=== PATIENT | male | born 1980 | race African-American/Black ===

== ENCOUNTER 2023-11-15 16:49 | Emergency (ER) | payer OTHER ==
[~2023-11-15] VITALS: Ht 182.9 cm; Wt 106.0 kg
[2023-11-15 16:59] VITALS: O2SAT 99
[2023-11-15 17:01] VITALS: BP 128/80; PULSE 86; RESP 16; TEMP 97.8
== END 2023-11-15 22:16 | disposition left against medical advice (07) ==
LOC: ER 16:49
DX: S61.216A Laceration without foreign body of right little finger without damage to nail, initial encounter (principal); Z53.21 Procedure and treatment not carried out due to patient leaving prior to being seen by health care provider; X58.XXXA Exposure to other specified factors, initial encounter; Y93.89 Activity, other specified; Y92.89 Other specified places as the place of occurrence of the external cause; Y99.8 Other external cause status
CPT/HCPCS: 99281

== ENCOUNTER 2024-01-05 07:22 | Emergency (ER) | payer MEDICAID, OTHER ==
[~2024-01-05] VITALS: Ht 182.9 cm; Wt 106.8 kg
[2024-01-05 07:31] VITALS: BP 142/76; PULSE 70; RESP 18; TEMP 98.5; O2SAT 99
== END 2024-01-05 08:43 | disposition home or self-care (01) ==
LOC: ER 07:37
DX: M79.675 Pain in left toe(s) (principal)
CPT/HCPCS: 99281

== ENCOUNTER 2024-03-09 17:25 | Emergency (ER) | payer MEDICAID ==
[~2024-03-09] VITALS: Ht 182.9 cm; Wt 104.3 kg
[2024-03-09 17:32] VITALS: BP 128/76; PULSE 80; RESP 16; TEMP 98; O2SAT 100
[2024-03-09] MEDS ORDERED: LIDO700A15 TP (20:17)
[2024-03-09] MEDS ORDERED: NAPR-1176 MT (20:17)
[2024-03-09] MEDS: KETOROLAC 15MG/ML VIAL IM ONE (20:49)
== END 2024-03-09 20:43 | disposition home or self-care (01) ==
LOC: ER 17:25
DX: S43.401A Unspecified sprain of right shoulder joint, initial encounter (principal); W18.30XA Fall on same level, unspecified, initial encounter; Y93.89 Activity, other specified; Y92.89 Other specified places as the place of occurrence of the external cause; Y99.8 Other external cause status
CPT/HCPCS: 99283; 73030; J1885

== ENCOUNTER 2024-05-09 10:56 | Emergency (ER) | payer MEDICAID ==
[~2024-05-09] VITALS: Ht 182.9 cm; Wt 100.0 kg
[~2024-05-09 10:56] MED LIST: LIDO700A15 TP; NAPR-1176 MT
[2024-05-09 11:04] VITALS: O2SAT 98
[2024-05-09] MEDS ORDERED: CETI10CA2 MT (11:27)
[2024-05-09] MEDS ORDERED: ALBU4TAB6 MT (11:27)
[2024-05-09] MEDS ORDERED: CETI10CA11 MT (11:28)
[2024-05-09 11:30] VITALS: BP 105/66; PULSE 74; RESP 19; TEMP 36.72516; O2SAT 98
== END 2024-05-09 11:31 | disposition home or self-care (01) ==
LOC: ER 10:56
DX: J30.2 Other seasonal allergic rhinitis (principal)
CPT/HCPCS: 99283

== ENCOUNTER 2024-05-29 08:22 | Emergency (ER) | payer MEDICAID ==
[~2024-05-29] VITALS: Ht 182.9 cm; Wt 95.0 kg
[~2024-05-29 08:22] MED LIST changes: +ALBU4TAB6 MT; +CETI10CA11 MT
[2024-05-29 08:26] VITALS: O2SAT 100
[2024-05-29] MEDS: ACETAMINOPHEN 325MG TABLET PO ONE (10:49)
[2024-05-29 11:08] VITALS: BP 155/79; PULSE 62; RESP 20; TEMP 98.6
== END 2024-05-29 11:08 | disposition home or self-care (01) ==
LOC: ER 08:35
DX: M79.605 Pain in left leg (principal)
CPT/HCPCS: 73630; 99283

== ENCOUNTER 2024-06-06 01:08 | Emergency (ER) | payer MEDICAID ==
[~2024-06-06] VITALS: Ht 182.9 cm; Wt 100.0 kg
[2024-06-06 01:14] VITALS: BP 127/80; PULSE 86; RESP 16; TEMP 98.2; O2SAT 99
== END 2024-06-06 04:23 | disposition left against medical advice (07) ==
LOC: ER 01:16
DX: M79.673 Pain in unspecified foot (principal); Z53.21 Procedure and treatment not carried out due to patient leaving prior to being seen by health care provider

== ENCOUNTER 2024-07-02 17:27 | Emergency (ER) | payer MEDICAID ==
[~2024-07-02] VITALS: Ht 177.8 cm; Wt 83.0 kg
[2024-07-02 17:29] VITALS: O2SAT 100
[2024-07-02 17:43] VITALS: BP 138/77; PULSE 79; RESP 18; TEMP 98.7; O2SAT 100
== END 2024-07-02 18:46 | disposition left against medical advice (07) ==
LOC: ER 17:27
DX: M79.672 Pain in left foot (principal); Z53.21 Procedure and treatment not carried out due to patient leaving prior to being seen by health care provider

== ENCOUNTER 2024-07-14 08:33 | Emergency (ER) | payer MEDICAID ==
[~2024-07-14] VITALS: Ht 182.9 cm; Wt 90.7 kg
[2024-07-14 08:39] VITALS: O2SAT 100
[2024-07-14] MEDS ORDERED: CYCL10TA21 MT (08:52)
[2024-07-14] MEDS ORDERED: P20 PO (08:52)
[2024-07-14] MEDS: CYCLOBENZAPRINE 10MG TABLET PO ONE (09:02)
[2024-07-14] MEDS: PREDNISONE 20MG TABLET PO ONE (09:03)
[2024-07-14 09:05] VITALS: BP 138/70; PULSE 71; RESP 16; TEMP 36.89184; O2SAT 100
== END 2024-07-14 09:04 | disposition home or self-care (01) ==
LOC: ER 08:33
DX: M54.50 Low back pain, unspecified (principal); Z79.899 Other long term (current) drug therapy
CPT/HCPCS: 99283; J7512

== ENCOUNTER 2025-01-15 11:47 | Emergency (ER) | payer MEDICAID ==
[~2025-01-15] VITALS: Ht 180.3 cm; Wt 95.0 kg
[~2025-01-15 11:47] MED LIST changes: +CYCL10TA21 MT; +P20 PO
[2025-01-15 11:56] VITALS: O2SAT 100
[2025-01-15] MEDS ORDERED: IBUP-2029 MT (14:46)
[2025-01-15] MEDS ORDERED: TERB12CR TP (14:46)
[2025-01-15 15:05] VITALS: BP 120/76; PULSE 75; RESP 16; TEMP 36.9; O2SAT 100
[2025-01-15] MEDS: IBUPROFEN 600MG TABLET PO ONE (15:05)
== END 2025-01-15 15:06 | disposition home or self-care (01) ==
LOC: ER 13:26
DX: G89.29 Other chronic pain (principal); M79.672 Pain in left foot; B35.3 Tinea pedis; Z79.1 Long term (current) use of non-steroidal anti-inflammatories (NSAID); Z79.52 Long term (current) use of systemic steroids
CPT/HCPCS: 73630; 99283

== ENCOUNTER 2025-06-16 21:20 | Emergency (ER) | payer MEDICAID ==
[~2025-06-16] VITALS: Ht 193 cm; Wt 86.0 kg
[~2025-06-16 21:20] MED LIST changes: +IBUP-1455 MT; +LIDO-53 TP; -LIDO700A15 TP; +TERB12CR TP
[2025-06-16 21:51] VITALS: O2SAT 100
[2025-06-16 22:20] VITALS: BP 112/62; PULSE 65; RESP 12; TEMP 36.7; O2SAT 100
[2025-06-16 22:40] LABS: CLARITY URINE CLEAR (CLEAR); COLOR URINE YELLOW (YELLOW); GLUCOSE URINE NEGATIVE (NEGATIVE); KETONES URINE TRACE (NEGATIVE); LEUKOCYTE ESTERASE URINE NEGATIVE (NEGATIVE); NITRITE URINE NEGATIVE (NEGATIVE); OCCULT BLOOD URINE NEGATIVE (NEGATIVE); PH URINE 6.0 (4.5-8.0); PROTEIN URINE NEGATIVE (NEGATIVE); SPECIFIC GRAVITY URINE 1.019 (1.005-1.030); UROBILINOGEN URINE 1.0 E.U./dL (0.2-1.0)
[2025-06-16 22:50] LABS: BASOPHILS % 0.5 % (0.0-2.0); EOSINOPHILS % 1.1 % (0.0-5.0); HEMATOCRIT. 41.4 % (42.0-52.0); HEMOGLOBIN. 13.6 g/dL (14.0-18.0); LYMPHOCYTES % 20.3 % (20.0-50.0); MEAN PLATELET VOLUME 9.4 fl (7.4-10.4); MONOCYTES % 7.2 % (2.0-8.0); NEUTROPHILS % 70.9 % (40.0-76.0); PLATELET 152 x1000/uL (130-400); RED BLOOD CELL COUNT 4.65 mill/uL (4.7-6.1); RED CELL DISTRIBUTION WIDTH 13.9 % (11.6-14.6)
[2025-06-16 23:11] LABS: CREATININE 1.1 mg/dL (0.6-1.3); UREA NITROGEN BLOOD 8 mg/dL (9-23)
[2025-06-16 23:13] LABS: ASPARTATE AMINOTRANSFERASE 28 IU/L (<34); BILIRUBIN DIRECT 0.2 mg/dL (<=3.0); BILIRUBIN TOTAL 0.5 mg/dL (0.1-1.0); PROTEIN TOTAL 6.1 g/dL (6.0-8.3)
[2025-06-16 23:14] LABS: ETHANOL BLOOD < 10 mg/dL (<10)
[2025-06-16] MEDS: ONDANSETRON HCL 4MG TABLET PO ONE (23:18)
[2025-06-16] MEDS: ACETAMINOPHEN 500MG TABLET PO ONE (23:18)
[2025-06-17] MEDS ORDERED: MAG355OR21 MT (01:32)
== END 2025-06-17 02:00 | disposition home or self-care (01) ==
LOC: ER 21:20
DX: R10.84 Generalized abdominal pain (principal); Z79.899 Other long term (current) drug therapy
CPT/HCPCS: 80076; 80048; 81003; 80320; 83690; 85025; 36415; 99284; 74176; Q0162; G0480

== ENCOUNTER 2025-10-10 00:34 | Emergency (ER) | payer MEDICAID ==
[~2025-10-10] VITALS: Ht 182.9 cm; Wt 95.0 kg
[~2025-10-10 00:34] MED LIST changes: +MAG355OR21 MT
[2025-10-10 00:46] VITALS: O2SAT 99
[2025-10-10 00:52] VITALS: BP 115/67; PULSE 67; RESP 16; TEMP 36.7; O2SAT 100
[2025-10-10 01:12] LABS: BASOPHILS % 1.1 % (0.0-2.0); EOSINOPHILS % 1.3 % (0.0-5.0); HEMATOCRIT. 39.5 % (42.0-52.0); HEMOGLOBIN. 13.3 g/dL (14.0-18.0); LYMPHOCYTES % 33.0 % (20.0-50.0); MEAN PLATELET VOLUME 9.0 fl (7.4-10.4); MONOCYTES % 7.5 % (2.0-8.0); NEUTROPHILS % 57.1 % (40.0-76.0); PLATELET 189 x1000/uL (130-400); RED BLOOD CELL COUNT 4.47 mill/uL (4.7-6.1); RED CELL DISTRIBUTION WIDTH 13.7 % (11.6-14.6)
[2025-10-10 01:15] LABS: CLARITY URINE CLEAR (CLEAR); COLOR URINE YELLOW (YELLOW); GLUCOSE URINE NEGATIVE (NEGATIVE); KETONES URINE NEGATIVE (NEGATIVE); LEUKOCYTE ESTERASE URINE NEGATIVE (NEGATIVE); NITRITE URINE NEGATIVE (NEGATIVE); OCCULT BLOOD URINE NEGATIVE (NEGATIVE); PH URINE 6.0 (4.5-8.0); PROTEIN URINE NEGATIVE (NEGATIVE); SPECIFIC GRAVITY URINE 1.020 (1.005-1.030); UROBILINOGEN URINE 1.0 E.U./dL (0.2-1.0)
[2025-10-10 01:26] LABS: CREATININE 1.1 mg/dL (0.6-1.3)
[2025-10-10 01:27] LABS: PROTEIN TOTAL 6.4 g/dL (6.0-8.3); UREA NITROGEN BLOOD 10 mg/dL (9-23)
[2025-10-10 01:29] LABS: ASPARTATE AMINOTRANSFERASE 33 IU/L (<34); BILIRUBIN DIRECT 0.2 mg/dL (<=3.0); BILIRUBIN TOTAL 0.5 mg/dL (0.1-1.0)
[2025-10-10] MEDS: KETOROLAC 15MG/ML VIAL IM ONE (01:29)
[2025-10-10] MEDS ORDERED: MAG-55 MT (02:06)
[2025-10-10 04:07] LABS: TROPONIN I HIGH SENSITIVITY < 4 ng/L (3.0-53)
== END 2025-10-10 04:22 | disposition home or self-care (01) ==
LOC: ER 00:34
DX: R10.13 Epigastric pain (principal); Z79.1 Long term (current) use of non-steroidal anti-inflammatories (NSAID); Z79.52 Long term (current) use of systemic steroids
CPT/HCPCS: 36415; 71045; 80048; 80076; 81003; 84484; 85025; 93005; 99285; J1885

== ENCOUNTER 2025-10-17 20:59 | Emergency (ER) | payer MEDICAID ==
[~2025-10-17] VITALS: Ht 182.9 cm; Wt 95.0 kg
[~2025-10-17 20:59] MED LIST changes: +MAG-55 MT
[2025-10-17 21:08] VITALS: O2SAT 98
[2025-10-17 21:15] VITALS: BP 135/80; PULSE 94; RESP 18; TEMP 37; O2SAT 98
[2025-10-18] MEDS ORDERED: BENZ100C86 MT
== END 2025-10-18 00:04 | disposition home or self-care (01) ==
LOC: ER 20:59
DX: J06.9 Acute upper respiratory infection, unspecified (principal); B97.89 Other viral agents as the cause of diseases classified elsewhere; Z79.1 Long term (current) use of non-steroidal anti-inflammatories (NSAID); Z79.52 Long term (current) use of systemic steroids; Z79.899 Other long term (current) drug therapy
CPT/HCPCS: 71045; 99283